=== PATIENT | female | born 1990 | race African-American/Black ===

== ENCOUNTER 2023-01-18 06:15 | Inpatient (IN) | payer BC ==
[2023-01-18] MEDS: ELECTROLYTE-148 SOLN 1,000 ML IV SCH ×3 (06:45→09:05)
[2023-01-18] MEDS ORDERED: NIFEdipine 10 MG CAPSULE (FP) PO ONE (07:08)
[2023-01-18] MEDS ORDERED: CITRIC ACID/SODIUM CITRATE 30 ML UNIT-DOSE CUP PO ONE (07:09)
[2023-01-18 07:31] VITALS: BMI 40.2
[2023-01-18] MEDS ORDERED: PHENYLEPHRINE HCL 10 MG/1 ML SINGLE DOSE VIAL ONE (07:46)
[2023-01-18] MEDS ORDERED: ePHEDrine SULFATE 50 MG/1 ML AMPULE ONE (07:47)
[2023-01-18] MEDS ORDERED: SODIUM CHLORIDE 0.9% P/F 10 ML VIAL IJ ONE (07:47)
[2023-01-18] MEDS ORDERED: PROPOFOL 20 ML ONE (07:48)
[2023-01-18] MEDS ORDERED: ceFAZolin SODIUM 1 GM VIAL ONE (07:48)
[2023-01-18] MEDS ORDERED: ONDANSETRON 4 MG/2 ML VIAL ONE (07:48)
[2023-01-18] MEDS ORDERED: DEXAMETHASONE SOD PHOSPHATE 4 MG/1 ML VIAL ONE (07:48)
[2023-01-18] MEDS ORDERED: SUCCINYLCHOLINE CHLORIDE 200 MG/10 ML SYRINGE ONE (07:48)
[2023-01-18] MEDS ORDERED: OXYTOCIN 10 UNITS/ML VIAL ONE ×2 (07:48)
[2023-01-18] MEDS ORDERED: FENTANYL CITRATE/PF 50 MCG/ML VIAL ONE (07:50)
[2023-01-18] MEDS ORDERED: morphine SULFATE/PF 1 MG/2 ML (2cc Syringe - QUVA) ONE (07:50)
[2023-01-18] MEDS ORDERED: METOCLOPRAMIDE HCL INJECTION 10 MG/2 ML VIAL ONE (08:26)
[2023-01-18 09:14] LABS: CORD HCO3 26.3 mmHg (20-29); CORD PCO2 65.8 mmHg (30-78)
[2023-01-18 09:20] LABS: CORD HCO3 24.1 mmHg (20-29); CORD pH 7.268 (7.14-7.44)
[2023-01-18] MEDS ORDERED: METHYLERGONOVINE MALEATE 0.2 MG/1 ML AMP IM PRN (09:29)
[2023-01-18] MEDS ORDERED: ACETAMINOPHEN 1000 MG/100 ML BAG IVPB PRN (09:30)
[2023-01-18] MEDS: OXYTOCIN 20 UNITS in 0.9% NS 20 UNIT/1,000 ML INFUS.BAG IV SCH ×2 (09:30→17:40)
[2023-01-18] MEDS: NIFEdipine E.R. 30 MG TABLET PO SCH ×2 (11:15→21:50)
[2023-01-18] MEDS ORDERED: oxyCODONE HCL 5 MG TABLET PO PRN ×2 (21:29)
[2023-01-19 06:10] VITALS: RESP 18
[2023-01-19] MEDS: ACETAMINOPHEN 325 MG TABLET (FP) PO PRN ×2 (06:47→21:35)
[2023-01-19 08:37] LABS: BASO % 0.7 % (0-2.0); EOS % 1.1 % (0-4.5); HEMATOCRIT 27.9 % (32.4-45.2); HEMOGLOBIN 9.4 GM/dL (10.7-15.3); LYMPH % 19.8 % (8-40); MCH 27.7 pg (25.7-33.7); MCHC 33.6 g/dl (32.0-36.0); MEAN CELL VOLUME 82.2 fl (80-96); MEAN PLT VOLUME 7.4 fl (7.5-11.1); MONO % 8.6 % (3.8-10.2); NEUT % 69.8 % (42.8-82.8); PLATELET COUNT 303 10^3/uL (134-434); RBC 3.39 M/mm3 (3.60-5.2); RDW 14.4 % (11.6-15.6); WHITE BLOOD COUNT 7.3 K/mm3 (4.0-10.0)
[2023-01-19] MEDS: ELECTROLYTE-148 SOLN 1,000 ML IV SCH (08:37)
[2023-01-19] MEDS: ENOXAPARIN NA (PORCINE) 40 MG/0.4 ML DISP.SYRIN SQ SCH (09:29)
[2023-01-19] MEDS ORDERED: BISACODYL 10 MG SUPP.RECT RC PRN (09:29)
[2023-01-19] MEDS: OXYTOCIN 20 UNITS in 0.9% NS 20 UNIT/1,000 ML INFUS.BAG IV SCH (09:29)
[2023-01-19] MEDS: IBUPROFEN 600 MG TABLET (FP) PO PRN ×2 (09:30→20:09)
[2023-01-19] MEDS: NIFEdipine E.R. 30 MG TABLET PO SCH ×2 (09:31→21:33)
[2023-01-19] MEDS: SIMETHICONE 80 MG TAB.CHEW (FP) PO PRN (20:09)
[2023-01-20] MEDS: IBUPROFEN 600 MG TABLET (FP) PO PRN ×3 (08:14→21:32)
[2023-01-20] MEDS: SIMETHICONE 80 MG TAB.CHEW (FP) PO PRN ×3 (08:16→21:32)
[2023-01-20] MEDS: ENOXAPARIN NA (PORCINE) 40 MG/0.4 ML DISP.SYRIN SQ SCH (09:33)
[2023-01-20] MEDS: NIFEdipine E.R. 30 MG TABLET PO SCH ×2 (09:34→21:32)
[2023-01-21] MEDS: SIMETHICONE 80 MG TAB.CHEW (FP) PO PRN (01:17)
[2023-01-21] MEDS: IBUPROFEN 600 MG TABLET (FP) PO PRN ×2 (01:18→08:11)
[2023-01-21 09:52] LABS: BASO % 0.6 % (0-2.0); EOS % 4.8 % (0-4.5); HEMATOCRIT 31.7 % (32.4-45.2); HEMOGLOBIN 10.4 GM/dL (10.7-15.3); LYMPH % 17.2 % (8-40); MCH 27.4 pg (25.7-33.7); MCHC 32.8 g/dl (32.0-36.0); MEAN CELL VOLUME 83.4 fl (80-96); MEAN PLT VOLUME 7.3 fl (7.5-11.1); MONO % 6.2 % (3.8-10.2); NEUT % 71.2 % (42.8-82.8); PLATELET COUNT 407 10^3/uL (134-434); RBC 3.81 M/mm3 (3.60-5.2); RDW 14.6 % (11.6-15.6); WHITE BLOOD COUNT 8.1 K/mm3 (4.0-10.0)
[2023-01-21] MEDS: NIFEdipine E.R. 30 MG TABLET PO SCH (09:55)
[2023-01-21] MEDS: ENOXAPARIN NA (PORCINE) 40 MG/0.4 ML DISP.SYRIN SQ SCH (09:55)
[2023-01-21 10:10] VITALS: BP 137/91; PULSE 104; TEMP 98.5
== END 2023-01-21 13:45 | disposition home or self-care (01) | DRG 788 ==
LOC: JLDR 06:15 → J3W 11:15
PROVIDERS: ADMIT Obstetrics & Gynecology; ATTEND Obstetrics & Gynecology
PROC: 10D00Z1 Extraction of Products of Conception, Low, Open Approach (ICD-10-PCS; principal; 2023-01-18)
DX: O11.4 Pre-existing hypertension with pre-eclampsia, complicating childbirth (principal); O10.92 Unspecified pre-existing hypertension complicating childbirth; O36.63X0 Maternal care for excessive fetal growth, third trimester, not applicable or unspecified; O24.420 Gestational diabetes mellitus in childbirth, diet controlled; O69.81X0 Labor and delivery complicated by cord around neck, without compression, not applicable or unspecified; Z3A.37 37 weeks gestation of pregnancy; Z37.0 Single live birth
CPT/HCPCS: 36415; 36600; 82803; 82962; 85025